=== PATIENT | male | born 1970 | race Hispanic/Latino ===

== ENCOUNTER 2019-01-04 16:38 | Observation (INO) | payer BC, OTHER ==
[~2019-01-04] VITALS: Ht 182.9 cm; Wt 106.6 kg
--- OUTSIDE RECORDS SUMMARY | 2019-01-04 16:41 | XMS REPORT ---
Author Author Admin, [place] Organization [facility] Address [address] [place] [phone] Phone Allergies, Adverse Reactions, Alerts Allergy Name Reaction Description Start Date Severity Status Provider No Known Allergies Khadra Sears CMA Conditions or Problems Problem Name Problem Code Onset Date Status Entry Date Provider Comment Standard Description Annotate Annual exam V70.0 Active Gil Sears MD Routine general medical examination at a health care facility Impacted cerumen, bilateral 380.4 Active Gil Sears MD Impacted cerumen Nipple lesion 611.79 Active Gil Sears MD Other signs and symptoms in breast Acquired multiple renal cysts 593.2 Active Norma C Witt TELEVISION MAINTENANCE WORKER Cyst of kidney, acquired Fatty liver 571.8 Active Norma C Witt TELEVISION MAINTENANCE WORKER Other chronic nonalcoholic liver disease Hyperglycemia, borderline 790.29 Active Norma C Witt TELEVISION MAINTENANCE WORKER Other abnormal glucose Pulmonary mass 786.6 Active Norma C Witt TELEVISION MAINTENANCE WORKER Swelling, mass, or lump in chest 1.5 cm bobbi low position in the right lower lung field Std screening V74.5 Active Norma C Witt TELEVISION MAINTENANCE WORKER Screening examination for venereal disease Hyperlipidemia, mixed, severe 272.2 Active Norma C Witt TELEVISION MAINTENANCE WORKER Mixed hyperlipidemia Vitamin D deficiency 268.9 Active Norma C Witt TELEVISION MAINTENANCE WORKER Unspecified vitamin D deficiency Abdominal pain 789.00 Active Norma C Witt TELEVISION MAINTENANCE WORKER Abdominal pain, unspecified site Elevated blood pressure reading without diagnosis of hypertension 796.2 Active Norma Reyesa TELEVISION MAINTENANCE WORKER Elevated blood pressure reading without diagnosis of hypertension Family history of biliary cancer V16.0 Active Norma Reyesa TELEVISION MAINTENANCE WORKER Family history of malignant neoplasm of gastrointestinal tract Nausea and vomiting 787.01 Active Norma Reyesa TELEVISION MAINTENANCE WORKER Nausea with vomiting Screening for thyroid disorder V77.0 Active Norma C Witt TELEVISION MAINTENANCE WORKER Screening for thyroid disorders Screening for vitamin D deficiency V77.99 Active Norma C Witt TELEVISION MAINTENANCE WORKER Screening for other and unspecified endocrine, nutritional, metabolic, and immunity disorders Hypertriglyceridemia, severe 272.4 Inactive Norma Reyesa TELEVISION MAINTENANCE WORKER Other and unspecified hyperlipidemia Hypertriglyceridemia, severe ICD-272.4 Inactive Norma Reyesa TELEVISION MAINTENANCE WORKER Medication List Medication Instructions Start Date Stop Date Generic Name NDC Status Provider Patient Instruction FENOFIBRATE 54 MG ORAL TABLET Take 1 tab By Mouth QAM FENOFIBRATE 52499030282 Active Norma Reyesa TELEVISION MAINTENANCE WORKER Active ONDANSETRON HCL 4 MG ORAL TABLET TAke 1 tab By Mouth Q6 hrs As Needed nausea/vomiting ONDANSETRON HCL 61178472662 Active Norma Reyesa TELEVISION MAINTENANCE WORKER Active PROMETHAZINE HCL 12.5 MG ORAL TABLET 1 by mouth every 6 hours as needed for nausea or emesis PROMETHAZINE HCL 11849775889 Active Norma Reyesa TELEVISION MAINTENANCE WORKER Active SIMVASTATIN 40 MG ORAL TABLET 1 by mouth every night SIMVASTATIN 26353825940 Active Norma Reyesa TELEVISION MAINTENANCE WORKER Active COLACE 100 MG ORAL CAPSULE 1 by mouth twice a day x2 wks then 1 caps daily DOCUSATE SODIUM 64376955532 Active Norma Reyesa TELEVISION MAINTENANCE WORKER Active OMEPRAZOLE 20 MG ORAL CAPSULE DELAYED RELEASE 1 by mouth every day OMEPRAZOLE 38751842390 Active Norma Reyesa TELEVISION MAINTENANCE WORKER Active PROMETHAZINE HCL 12.5 MG ORAL TABLET 1 by mouth every 8 hours as needed for nausea or emesis PROMETHAZINE HCL 03734362513 Active Norma Reyesa TELEVISION MAINTENANCE WORKER Active CARAFATE 1 GM ORAL TABLET 1 by mouth 3 times a day 30 minutes before meals CARAFATE 1 GM ORAL TABLET 450102 SUCRALFATE Inactive VITAMIN D (ERGOCALCIFEROL) 09361 UNIT ORAL CAPSULE One capsule by mouth once per week for 12 weeks VITAMIN D (ERGOCALCIFEROL) 71782 UNIT ORAL CAPSULE 3592606 ERGOCALCIFEROL Inactive CARAFATE 1 GM ORAL TABLET 1 by mouth 3 times a day 30 minutes before meals SUCRALFATE [id number] No Longer Active Normarudi Witt TELEVISION MAINTENANCE WORKER Active VITAMIN D (ERGOCALCIFEROL) 31673 UNIT ORAL CAPSULE One capsule by mouth once per week for 12 weeks ERGOCALCIFEROL [id number] No Longer Active Norma Sibley Eduar TELEVISION MAINTENANCE WORKER Active Vital Signs Date Name Value Unit Range Description blood pressure, diastolic 74 mm[Hg] BP alvares blood pressure, systolic 113 mm[Hg] BP sys height E&M 72 [in_us] Bdy height pulse rate E&M 64 /min Heart rate respiratory rate E&M 18 /min Resp rate temperature E&M 98.3 [degF] Body temperature weight E&M 238 [lb_av] Weight Measured blood pressure, diastolic 77 mm[Hg] BP alvares blood pressure, systolic 117 mm[Hg] BP sys height E&M 72 [in_us] Bdy height pulse rate E&M 72 /min Heart rate respiratory rate E&M 18 /min Resp rate temperature E&M 98.7 [degF] Body temperature weight E&M 242 [lb_av] Weight Measured blood pressure, diastolic 78 mm[Hg] BP alvares blood pressure, systolic 115 mm[Hg] BP sys height E&M 72 [in_us] Bdy height pulse rate E&M 63 /min Heart rate respiratory rate E&M 12 /min Resp rate temperature E&M 97.9 [degF] Body temperature weight E&M 235.38 [lb_av] Weight Measured blood pressure, diastolic 77 mm[Hg] BP alvares blood pressure, systolic 133 mm[Hg] BP sys height E&M 72 [in_us] Bdy height pulse rate E&M 59 /min Heart rate temperature E&M 99 [degF] Body temperature weight E&M 267 [lb_av] Weight Measured Diagnostic Results Date Name Value Unit Range Description Lab Report: CBC With Differential/Platelet, Comp. Metabolic Panel (14), ... - Chemistry thyroid stimulating hormone, serum 1.720 u[iU]/mL 0.450-4.500 very low density lipoproteins 33 mg/dL 5-40 Lab Report: LIPID PANEL, STANDARD, HDL CHOLESTEROL, TRIGLYCERIDES, LDL-C ... - Chemistry cholesterol, non-HDL, total 199 MG/DL (CALC) mg/dL <130 hepatitis B surface antigen NON-REACTIVE NON-REACTIVE Lab Report: CBC With Differential/Platelet, Comp. Metabolic Panel (14), ... - Chemistry chloride, serum 102 mmol/L 96-106 urea nitrogen, blood 13 mg/dL 6-24 Lab Report: LIPID PANEL, HDL CHOLESTEROL, TRIGLYCERIDES, LDL-CHOLESTEROL ... - Hematology Absolute Eosinophil count 259 {Cells}/uL 15-500 Lab Report: CBC With Differential/Platelet, Comp. Metabolic Panel (14), ... - Urinalysis leukocyte esterase, urine, by dipstick Negative Negative Lab Report: CBC With Differential/Platelet, Comp. Metabolic Panel (14), ... - Hematology mean corpuscular hemoglobin concentration, RBC 32.7 G/DL % 31.5-35.7 erythrocyte (RBC) count 5.14 X10E6/UL 10*6/mm3 4.14-5.80 Lab Report: LIPID PANEL, STANDARD, HDL CHOLESTEROL, TRIGLYCERIDES, LDL-C ... - Chemistry cholesterol/HDL ratio, serum, percent 6.5 (calc) <5.0 Lab Report: LIPID PANEL, STANDARD, HDL CHOLESTEROL, TRIGLYCERIDES, LDL-C ... - Serology hepatitis C antibody, serum NON-REACTIVE NON-REACTIVE Lab Report: CBC With Differential/Platelet, Comp. Metabolic Panel (14), ... - Urinalysis urine color Yellow Yellow Lab Report: CBC With Differential/Platelet, Comp. Metabolic Panel (14), ... - Chemistry Absolute Neutrophils 4.0 X10E3/UL 10*3/uL 1.4-7.0 Lab Report: CBC With Differential/Platelet, Comp. Metabolic Panel (14), ... - Urinalysis bilirubin, urine Negative Negative Lab Report: LIPID PANEL, HDL CHOLESTEROL, TRIGLYCERIDES, LDL-CHOLESTEROL ... - Hematology mean platelet volume 10.4 fL 7.5-12.5 Lab Report: CBC With Differential/Platelet, Comp. Metabolic Panel (14), ... - Chemistry LDL cholesterol, serum 139 mg/dL 0-99 urea nitrogen/creatinine ratio, serum 14 9-20 Lab Report: CBC With Differential/Platelet, Comp. Metabolic Panel (14), ... - Hematology mean corpuscular volume, RBC 88 fL 79-97 Lab Report: CBC With Differential/Platelet, Comp. Metabolic Panel (14), ... - Chemistry HDL cholesterol, serum 54 mg/dL >39 Lab Report: CBC With Differential/Platelet, Comp. Metabolic Panel (14), ... - Hematology monocytes as percent of blood leukocytes 7 % Not Estab. Lab Report: CBC With Differential/Platelet, Comp. Metabolic Panel (14), ... - Chemistry creatinine, serum 0.91 mg/dL 0.76-1.27 albumin/globulin ratio, serum 2.0 1.2-2.2 Lab Report: LIPID PANEL, HDL CHOLESTEROL, TRIGLYCERIDES, LDL-CHOLESTEROL ... - Hematology Absolute Monocyte count 585 {Cells}/uL 200-950 Lab Report: CBC With Differential/Platelet, Comp. Metabolic Panel (14), ... - Chemistry cholesterol, serum 226 mg/dL 883-692 6760/06/13 bilirubin, serum, total 0.6 mg/dL 0.0-1.2 Lab Report: CBC With Differential/Platelet, Comp. Metabolic Panel (14), ... - Hematology Eosinophil Absolute Count 0.3 X10E3/UL 10*3/uL 0.0-0.4 Lab Report: CBC With Differential/Platelet, Comp. Metabolic Panel (14), ... - Urinalysis appearance, urine Cloudy Clear Lab Report: CBC With Differential/Platelet, Comp. Metabolic Panel (14), ... - Chemistry aspartate aminotransferase (SGOT), serum 15 U/L 0-40 Lab Report: CBC With Differential/Platelet, Comp. Metabolic Panel (14), ... - Hematology red blood cell distribution width 14.7 % 12.3-15.4 Lab Report: CBC With Differential/Platelet, Comp. Metabolic Panel (14), ... - Urinalysis urinalysis, microscopic examination [facility] Lab Report: LIPID PANEL, STANDARD, HDL CHOLESTEROL, TRIGLYCERIDES, LDL-C ... - Chemistry globulins, serum, total 2.6 G/DL (CALC) g/dL 1.9-3.7 Lab Report: CBC With Differential/Platelet, Comp. Metabolic Panel (14), ... - Hematology leukocyte count, blood 7.2 X10E3/UL 10*3/mm3 3.4-10.8 Lab Report: CBC With Differential/Platelet, Comp. Metabolic Panel (14), ... - Urinalysis pH, urine, semiquantitative 8.0 5.0-7.5 Lab Report: CBC With Differential/Platelet, Comp. Metabolic Panel (14), ... - Chemistry potassium, serum 5.2 mmol/L 3.5-5.2 immature granulocytes, percentage of total cells, blood 0 % Not Estab. albumin, serum 4.5 g/dL 3.5-5.5 Lab Report: CBC With Differential/Platelet, Comp. Metabolic Panel (14), ... - Hematology lymphocyte count, blood, automated 2.4 X10E3/UL 10*3/mm3 0.7-3.1 hematocrit, blood 45.0 % 37.5-51.0 Lab Report: CBC With Differential/Platelet, Comp. Metabolic Panel (14), ... - Chemistry sodium, serum 141 mmol/L 134-144 Lab Report: LIPID PANEL, HDL CHOLESTEROL, TRIGLYCERIDES, LDL-CHOLESTEROL ... - Chemistry TSH (thyroid stimulating hormone) with reflex FT4 1.35 m[iU]/L 0.40-4.50 Lab Report: CBC With Differential/Platelet, Comp. Metabolic Panel (14), ... - Hematology neutrophils as percent of blood leukocytes 55 % Not Estab. basophils as percent of blood leukocytes 1 % Not Estab. Lab Report: CBC With Differential/Platelet, Comp. Metabolic Panel (14), ... - Chemistry specific gravity, body fluid 1.021 1.005-1.030 Lab Report: CBC With Differential/Platelet, Comp. Metabolic Panel (14), ... - Urinalysis protein, urine, semiquantitative (dipstick) Negative Negative/Trace Lab Report: CBC With Differential/Platelet, Comp. Metabolic Panel (14), ... - Chemistry carbon dioxide, venous blood 25 mmol/L 20-29 Lab Report: LIPID PANEL, HDL CHOLESTEROL, TRIGLYCERIDES, LDL-CHOLESTEROL ... - Chemistry Absolute Neutrophil count 3848 {Cells}/uL [phone] Lab Report: CBC With Differential/Platelet, Comp. Metabolic Panel (14), ... - Chemistry nitrate, urine Negative Negative triglyceride, serum, fasting 163 mg/dL 0-149 calcium, serum 9.5 mg/dL 8.7-10.2 alanine aminotransferase (SGPT), serum 16 U/L 0-44 Lab Report: CBC With Differential/Platelet, Comp. Metabolic Panel (14), ... - Hematology mean corpuscular hemoglobin, RBC 28.6 pg 26.6-33.0 Lab Report: LIPID PANEL, HDL CHOLESTEROL, TRIGLYCERIDES, LDL-CHOLESTEROL ... - Chemistry lipase, serum 19 U/L [iU]/L 7-60 Lab Report: CBC With Differential/Platelet, Comp. Metabolic Panel (14), ... - Chemistry protein, total, serum 6.8 g/dL 6.0-8.5 alkaline phosphatase, serum 78 U/L 39-117 Lab Report: CBC With Differential/Platelet, Comp. Metabolic Panel (14), ... - Hematology hemoglobin, blood 14.7 g/dL 13.0-17.7 lymphocytes as percent of blood leukocytes 33 % Not Estab. Lab Report: CBC With Differential/Platelet, Comp. Metabolic Panel (14), ... - Chemistry hemoglobin A1C, blood, as % of total hemoglobin 5.5 % 4.8-5.6 Lab Report: CBC With Differential/Platelet, Comp. Metabolic Panel (14), ... - Urinalysis glucose, urine, semiquantitative Negative Negative Lab Report: LIPID PANEL, HDL CHOLESTEROL, TRIGLYCERIDES, LDL-CHOLESTEROL ... - Hematology eosinophils as percent of blood leukocytes 3.5 % Lab Report: CBC With Differential/Platelet, Comp. Metabolic Panel (14), ... - Genetics/fertility eGFR if 115 mL/min/1.73m2 >59 Lab Report: CBC With Differential/Platelet, Comp. Metabolic Panel (14), ... - Hematology basophil count, absolute 0.0 x10E3/uL 0.0-0.2 Lab Report: LIPID PANEL, STANDARD, HDL CHOLESTEROL, TRIGLYCERIDES, LDL-C ... - Lab Hepatitis C Antibody, Signal to Cut-Off 0.02 <1.00 Lab Report: CBC With Differential/Platelet, Comp. Metabolic Panel (14), ... - Chemistry globulin, serum 2.3 1.5-4.5 Estimated Glomerular Filtration Rate (calc) 99 mL/min/1.73m2 >59 Lab Report: LIPID PANEL, HDL CHOLESTEROL, TRIGLYCERIDES, LDL-CHOLESTEROL ... - Chemistry lymphocytes, absolute 2657 CELLS/UL 10*3/uL 850-3900 Lab Report: CBC With Differential/Platelet, Comp. Metabolic Panel (14), ... - Basic Occult Blood, urine Negative Negative Lab Report: LIPID PANEL, HDL CHOLESTEROL, TRIGLYCERIDES, LDL-CHOLESTEROL ... - Chemistry vitamin D 25-hydroxy, serum 19 ng/mL 30-100 Lab Report: LIPID PANEL, HDL CHOLESTEROL, TRIGLYCERIDES, LDL-CHOLESTEROL ... - Serology carcinoembryonic antigen 0.7 ng/mL See Note: Lab Report: CBC With Differential/Platelet, Comp. Metabolic Panel (14), ... - Hematology eosinophils as percent of blood leukocytes 4 % Not Estab. Lab Report: CBC With Differential/Platelet, Comp. Metabolic Panel (14), ... - Chemistry blood glucose, random 99 mg/dL 65-99 Lab Report: CBC With Differential/Platelet, Comp. Metabolic Panel (14), ... - Urinalysis urobilinogen, urine, semiquantitative (dipstick) 0.2 0.2-1.0 Lab Report: LIPID PANEL, HDL CHOLESTEROL, TRIGLYCERIDES, LDL-CHOLESTEROL ... - Chemistry amylase, serum 27 U/L 21-101 Lab Report: CBC With Differential/Platelet, Comp. Metabolic Panel (14), ... - Hematology monocyte count, blood, automated 0.5 X10E3/UL 10*3/uL 0.1-0.9 platelet count 245 X10E3/UL 10*3/mm3 150-450 Lab Report: CBC With Differential/Platelet, Comp. Metabolic Panel (14), ... - Urinalysis ketones, urine, by test strip Negative Negative Encounters Date Encounter Provider Code Facility 12:07:28 CDT Est Patient Exp Problem - 04815 Gil Sears MD CPT-76716 [facility] 09:41:20 CDT Est Patient Detailed - 65310 Norma Witt NP CPT-89211 [facility] 13:56:34 CDT New Patient Comprehensive - 91233 Normarudi Witt TELEVISION MAINTENANCE WORKER CPT-51505 [facility] Procedures Code Procedure Name Date Entry Date Standard Description CPT-60984 Est Patient Well Exam (40 - 64 Yrs) - 39630 10:39:49 CDT CPT-21173 Venipuncture 10:38:49 CDT CPT-01987 New Patient Well Exam (40 - 64 Yrs) - 86050 11:54:47 CDT
--- OUTSIDE RECORDS SUMMARY | 2019-01-04 16:41 | XMS REPORT ---
Author Author Admin, [place] Organization [facility] Address [address] [place] [phone] Phone Allergies, Adverse Reactions, Alerts Allergy Name [...] renal cysts 593.2 Active Norma C Witt COPING MACHINE OPERATOR Cyst of kidney, acquired Fatty liver 571.8 Active Norma C Witt COPING MACHINE OPERATOR Other chronic nonalcoholic liver disease Hyperglycemia, borderline 790.29 Active Norma C Witt COPING MACHINE OPERATOR Other abnormal glucose Pulmonary mass 786.6 Active Norma C Witt COPING MACHINE OPERATOR Swelling, mass, or lump in chest 1.5 cm bobbi low position in the right lower lung field Std screening V74.5 Active Norma C Witt COPING MACHINE OPERATOR Screening examination for venereal disease Hyperlipidemia, mixed, severe 272.2 Active Norma C Witt COPING MACHINE OPERATOR Mixed hyperlipidemia Vitamin D deficiency 268.9 Active Norma C Witt COPING MACHINE OPERATOR Unspecified vitamin D deficiency Abdominal pain 789.00 Active Norma C Witt COPING MACHINE OPERATOR Abdominal pain, unspecified site Elevated blood pressure reading without diagnosis of hypertension 796.2 Active Norma Reyesa COPING MACHINE OPERATOR Elevated blood pressure reading without diagnosis of hypertension Family history of biliary cancer V16.0 Active Norma Reyesa COPING MACHINE OPERATOR Family history of malignant neoplasm of gastrointestinal tract Nausea and vomiting 787.01 Active Norma Reyesa COPING MACHINE OPERATOR Nausea with vomiting Screening for thyroid disorder V77.0 Active Norma C Witt COPING MACHINE OPERATOR Screening for thyroid disorders Screening for vitamin D deficiency V77.99 Active Norma C Witt COPING MACHINE OPERATOR Screening for other and unspecified endocrine, nutritional, metabolic, and immunity disorders Hypertriglyceridemia, severe 272.4 Inactive Norma Reyesa COPING MACHINE OPERATOR Other and unspecified hyperlipidemia Hypertriglyceridemia, severe ICD-272.4 Inactive Norma Reyesa COPING MACHINE OPERATOR Medication List Medication Instructions Start Date Stop Date Generic Name NDC Status Provider Patient Instruction FENOFIBRATE 54 MG ORAL TABLET Take 1 tab By Mouth QAM FENOFIBRATE 98874589260 Active Norma Reyesa COPING MACHINE OPERATOR Active ONDANSETRON HCL 4 MG ORAL TABLET TAke 1 tab By Mouth Q6 hrs As Needed nausea/vomiting ONDANSETRON HCL 45251659894 Active Norma Reyesa COPING MACHINE OPERATOR Active PROMETHAZINE HCL 12.5 MG ORAL TABLET 1 by mouth every 6 hours as needed for nausea or emesis PROMETHAZINE HCL 18193814245 Active Norma Reyesa COPING MACHINE OPERATOR Active SIMVASTATIN 40 MG ORAL TABLET 1 by mouth every night SIMVASTATIN 36128739181 Active Norma Reyesa COPING MACHINE OPERATOR Active COLACE 100 MG ORAL CAPSULE 1 by mouth twice a day x2 wks then 1 caps daily DOCUSATE SODIUM 44376513901 Active Norma Reyesa COPING MACHINE OPERATOR Active OMEPRAZOLE 20 MG ORAL CAPSULE DELAYED RELEASE 1 by mouth every day OMEPRAZOLE 56587457634 Active Norma Reyesa COPING MACHINE OPERATOR Active PROMETHAZINE HCL 12.5 MG ORAL TABLET 1 by mouth every 8 hours as needed for nausea or emesis PROMETHAZINE HCL 39282779909 Active Norma Reyesa COPING MACHINE OPERATOR Active CARAFATE 1 GM ORAL TABLET 1 by mouth 3 times a day 30 minutes before meals CARAFATE 1 GM ORAL TABLET 001902 SUCRALFATE Inactive VITAMIN D (ERGOCALCIFEROL) 93195 UNIT ORAL CAPSULE One capsule by mouth once per week for 12 weeks VITAMIN D (ERGOCALCIFEROL) 32052 UNIT ORAL CAPSULE 6655993 ERGOCALCIFEROL Inactive CARAFATE 1 GM ORAL TABLET 1 by mouth 3 times a day 30 minutes before meals SUCRALFATE 93015455686 No Longer Active Normarudi Witt COPING MACHINE OPERATOR Active VITAMIN D (ERGOCALCIFEROL) 30855 UNIT ORAL CAPSULE One capsule by mouth once per week for 12 weeks ERGOCALCIFEROL 66770821217 No Longer Active Norma Sibley Eduar COPING MACHINE OPERATOR Active Vital Signs Date Name Value Unit [...] temperature weight E&M 267 [lb_av] Weight Measured blood pressure, diastolic 95 mm[Hg] BP alvares blood pressure, systolic 143 mm[Hg] BP sys height E&M 72 [in_us] Bdy height pulse rate E&M 68 /min Heart rate temperature E&M 98 [degF] Body temperature weight E&M 266.44 [lb_av] Weight Measured Diagnostic Results Date Name Value Unit Range Description Lab Report: LIPID PANEL, STANDARD, HDL CHOLESTEROL, TRIGLYCERIDES, LDL-C ... - Chemistry cholesterol, non-HDL, total 199 MG/DL (CALC) mg/dL <130 hepatitis B surface antigen NON-REACTIVE NON-REACTIVE chloride, serum 102 mmol/L 98-110 urea nitrogen, blood 13 mg/dL 7-25 Lab Report: LIPID PANEL, HDL CHOLESTEROL, TRIGLYCERIDES, LDL-CHOLESTEROL ... - Hematology Absolute Eosinophil count 259 {Cells}/uL 15-500 mean corpuscular hemoglobin concentration, RBC 32.5 G/DL % 32.0-36.0 Lab Report: LIPID PANEL, STANDARD, HDL CHOLESTEROL, TRIGLYCERIDES, LDL-C ... - Chemistry cholesterol/HDL ratio, serum, percent 6.5 (calc) <5.0 Lab Report: LIPID PANEL, HDL CHOLESTEROL, TRIGLYCERIDES, LDL-CHOLESTEROL ... - Hematology erythrocyte (RBC) count 5.48 MILLION/UL 10*6/mm3 4.20-5.80 Lab Report: LIPID PANEL, STANDARD, HDL CHOLESTEROL, TRIGLYCERIDES, LDL-C ... - Serology hepatitis C antibody, serum NON-REACTIVE NON-REACTIVE Lab Report: LIPID PANEL, HDL CHOLESTEROL, TRIGLYCERIDES, LDL-CHOLESTEROL ... - Hematology mean platelet volume 10.4 fL 7.5-12.5 Lab Report: LIPID PANEL, STANDARD, HDL CHOLESTEROL, TRIGLYCERIDES, LDL-C ... - Chemistry LDL cholesterol, serum LDL cholesterol not calculated. Triglyceride le... mg/dL (calc) mg/dL urea nitrogen/creatinine ratio, serum NOT APPLICABLE (calc) 6-22 Lab Report: LIPID PANEL, HDL CHOLESTEROL, TRIGLYCERIDES, LDL-CHOLESTEROL ... - Hematology mean corpuscular volume, RBC 84.9 fL 80.0-100.0 Lab Report: LIPID PANEL, STANDARD, HDL CHOLESTEROL, TRIGLYCERIDES, LDL-C ... - Chemistry HDL cholesterol, serum 36 mg/dL >40 Lab Report: LIPID PANEL, HDL CHOLESTEROL, TRIGLYCERIDES, LDL-CHOLESTEROL ... - Hematology monocytes as percent of blood leukocytes 7.9 % Lab Report: LIPID PANEL, STANDARD, HDL CHOLESTEROL, TRIGLYCERIDES, LDL-C ... - Chemistry creatinine, serum 0.91 mg/dL 0.60-1.35 albumin/globulin ratio, serum 1.7 (calc) 1.0-2.5 Lab Report: LIPID PANEL, HDL CHOLESTEROL, TRIGLYCERIDES, LDL-CHOLESTEROL ... - Hematology Absolute Monocyte count 585 {Cells}/uL 200-950 Lab Report: LIPID PANEL, STANDARD, HDL CHOLESTEROL, TRIGLYCERIDES, LDL-C ... - Chemistry cholesterol, serum 235 mg/dL <200 bilirubin, serum, total 0.4 mg/dL 0.2-1.2 aspartate aminotransferase (SGOT), serum 17 U/L 10-40 Lab Report: LIPID PANEL, HDL CHOLESTEROL, TRIGLYCERIDES, LDL-CHOLESTEROL ... - Hematology red blood cell distribution width 13.8 % 11.0-15.0 Lab Report: LIPID PANEL, STANDARD, HDL CHOLESTEROL, TRIGLYCERIDES, LDL-C ... - Chemistry globulins, serum, total 2.6 G/DL (CALC) g/dL 1.9-3.7 Lab Report: LIPID PANEL, HDL CHOLESTEROL, TRIGLYCERIDES, LDL-CHOLESTEROL ... - Hematology leukocyte count, blood 7.4 THOUSAND/UL 10*3/mm3 3.8-10.8 Lab Report: LIPID PANEL, STANDARD, HDL CHOLESTEROL, TRIGLYCERIDES, LDL-C ... - Chemistry potassium, serum 4.3 mmol/L 3.5-5.3 albumin, serum 4.4 g/dL 3.6-5.1 Lab Report: LIPID PANEL, HDL CHOLESTEROL, TRIGLYCERIDES, LDL-CHOLESTEROL ... - Hematology hematocrit, blood 46.5 % 38.5-50.0 Lab Report: LIPID PANEL, STANDARD, HDL CHOLESTEROL, TRIGLYCERIDES, LDL-C ... - Chemistry sodium, serum 140 mmol/L 135-146 Lab Report: LIPID PANEL, HDL CHOLESTEROL, TRIGLYCERIDES, LDL-CHOLESTEROL ... - Chemistry TSH (thyroid stimulating hormone) with reflex FT4 1.35 m[iU]/L 0.40-4.50 Lab Report: LIPID PANEL, HDL CHOLESTEROL, TRIGLYCERIDES, LDL-CHOLESTEROL ... - Hematology neutrophils as percent of blood leukocytes 52 % basophils as percent of blood leukocytes 0.7 % Lab Report: LIPID PANEL, STANDARD, HDL CHOLESTEROL, TRIGLYCERIDES, LDL-C ... - Chemistry carbon dioxide, venous blood 25 mmol/L 20-32 Lab Report: LIPID PANEL, HDL CHOLESTEROL, TRIGLYCERIDES, LDL-CHOLESTEROL ... - Chemistry Absolute Neutrophil count 3848 {Cells}/uL 5701-6748 Lab Report: LIPID PANEL, STANDARD, HDL CHOLESTEROL, TRIGLYCERIDES, LDL-C ... - Chemistry triglyceride, serum, fasting 452 mg/dL <150 calcium, serum 9.4 mg/dL 8.6-10.3 alanine aminotransferase (SGPT), serum 27 U/L 9-46 Lab Report: LIPID PANEL, HDL CHOLESTEROL, TRIGLYCERIDES, LDL-CHOLESTEROL ... - Hematology mean corpuscular hemoglobin, RBC 27.6 pg 27.0-33.0 Lab Report: LIPID PANEL, HDL CHOLESTEROL, TRIGLYCERIDES, LDL-CHOLESTEROL ... - Chemistry lipase, serum 19 U/L [iU]/L 7-60 Lab Report: LIPID PANEL, STANDARD, HDL CHOLESTEROL, TRIGLYCERIDES, LDL-C ... - Chemistry protein, total, serum 7.0 g/dL 6.1-8.1 alkaline phosphatase, serum 88 U/L 40-115 Lab Report: LIPID PANEL, HDL CHOLESTEROL, TRIGLYCERIDES, LDL-CHOLESTEROL ... - Hematology hemoglobin, blood 15.1 g/dL 13.2-17.1 lymphocytes as percent of blood leukocytes 35.9 % Lab Report: LIPID PANEL, STANDARD, HDL CHOLESTEROL, TRIGLYCERIDES, LDL-C ... - Chemistry hemoglobin A1C, blood, as % of total hemoglobin 5.5 % OF TOTAL HGB % <5.7 Lab Report: LIPID PANEL, HDL CHOLESTEROL, TRIGLYCERIDES, LDL-CHOLESTEROL ... - Hematology eosinophils as percent of blood leukocytes 3.5 % Lab Report: LIPID PANEL, STANDARD, HDL CHOLESTEROL, TRIGLYCERIDES, LDL-C ... - Genetics/fertility eGFR if 116 mL/min/1.73m2 > OR=60 Lab Report: LIPID PANEL, HDL CHOLESTEROL, TRIGLYCERIDES, LDL-CHOLESTEROL ... - Hematology basophil count, absolute 52 cells/uL 0-200 Lab Report: LIPID PANEL, STANDARD, HDL CHOLESTEROL, TRIGLYCERIDES, LDL-C ... - Lab Hepatitis C Antibody, Signal to Cut-Off 0.02 <1.00 Lab Report: LIPID PANEL, STANDARD, HDL CHOLESTEROL, TRIGLYCERIDES, LDL-C ... - Chemistry Estimated Glomerular Filtration Rate (calc) 100 mL/min/1.73m2 > OR=60 Lab Report: LIPID PANEL, HDL CHOLESTEROL, TRIGLYCERIDES, LDL-CHOLESTEROL ... - Chemistry lymphocytes, absolute 2657 CELLS/UL 10*3/uL 850-3900 vitamin D 25-hydroxy, serum 19 ng/mL 30-100 Lab Report: LIPID PANEL, HDL CHOLESTEROL, TRIGLYCERIDES, LDL-CHOLESTEROL ... - Serology carcinoembryonic antigen 0.7 ng/mL See Note: Lab Report: LIPID PANEL, STANDARD, HDL CHOLESTEROL, TRIGLYCERIDES, LDL-C ... - Chemistry blood glucose, random 92 mg/dL 65-99 Lab Report: LIPID PANEL, HDL CHOLESTEROL, TRIGLYCERIDES, LDL-CHOLESTEROL ... - Chemistry amylase, serum 27 U/L 21-101 Lab Report: LIPID PANEL, HDL CHOLESTEROL, TRIGLYCERIDES, LDL-CHOLESTEROL ... - Hematology platelet count 273 THOUSAND/UL 10*3/mm3 140-400 Encounters Date Encounter Provider Code Facility 12:07:28 CDT Est Patient Exp Problem - 53835 Gil Sears MD CPT-50402 [facility] 09:41:20 CDT Est Patient Detailed - 22616 Norma iWtt NP CPT-57374 [facility] 13:56:34 CDT New Patient Comprehensive - 60725 oNrma Witt COPING MACHINE OPERATOR CPT-73018 [facility] Procedures Code Procedure Name Date Entry Date Standard Description CPT-25313 Est Patient Well Exam (40 - 64 Yrs) - 15509 10:39:49 CDT CPT-33844 Venipuncture 10:38:49 CDT CPT-77036 New Patient Well Exam (40 - 64 Yrs) - 95022 11:54:47 CDT
[2019-01-04] MEDS ORDERED: ASPIRIN 81 MG CHEW TAB PO ONE ×2 (17:15→18:45)
[2019-01-04 17:57] LABS: BILIRUBIN,URINE NEGATIVE (NEGATIVE); CLARITY,URINE SL CLOUDY (CLEAR); COLOR,URINE YELLOW (YELLOW); KETONES,URINE NEGATIVE (NEGATIVE); LEUKOCYTE ESTERASE ,URINE NEGATIVE (NEGATIVE); NITRITE,URINE NEGATIVE (NEGATIVE); PROTEIN,URINE DIPSTICK NEGATIVE (NEGATIVE); URINE UROBILINOGEN 0.2 mg/dL (0.2 - 1)
[2019-01-04 18:11] LABS: BASOPHILS # (AUTO) 0.1 (0.0-0.1); BASOPHILS % 0.7 % (0.0-1.0); EOSINOPHILS # (AUTO) 0.5 (0.0-0.4); EOSINOPHILS % 5.3 % (0.0-6.0); HEMATOCRIT 45.5 % (38.2-49.6); HEMOGLOBIN 15.5 g/dL (14.0-18.0); LYMPHOCYTES # (AUTO) 3.9 (1.0-3.2); LYMPHOCYTES % 39.9 % (18.0-39.1); MEAN CORPUSCULAR HEMOGLOBIN 27.9 pg (28-32); MEAN CORPUSCULAR HGB CONC 34.1 g/dL (31-35); MEAN CORPUSCULAR VOLUME 81.8 fL (81-99); MONOCYTES # (AUTO) 0.8 (0.2-0.8); NEUTROPHILS # (AUTO) 4.4 (2.1-6.9); NEUTROPHILS % 45.9 % (38.7-80.0); PLATELET COUNT 246 x10e3/uL (140-360); RED BLOOD COUNT 5.56 x10e6/uL (4.3-5.7); RED CELL DISTRIBUTION WIDTH 13.5 % (11.7-14.4)
[2019-01-04 18:14] LABS: EPITHELIAL CELLS,URINE RARE /LPF
--- NOTE | 2019-01-04 18:17 | Diagnostic Imaging Report ---
EXAMINATION: CHEST SINGLE (PORTABLE) INDICATION: Shortness of breath ^ERMD ORDER ^[id number] ^1750 ^Y COMPARISON: None FINDINGS: TUBES and LINES: None. LUNGS: Lungs are well inflated. Lungs are clear. There is no evidence of pneumonia or pulmonary edema. PLEURA: No pleural effusion or pneumothorax. HEART AND MEDIASTINUM: The cardiomediastinal silhouette is unremarkable. BONES AND SOFT TISSUES: No acute osseous lesion. Soft tissues are unremarkable. UPPER ABDOMEN: No free air under the diaphragm. IMPRESSION: No acute thoracic abnormality. Signed by: Dr. Reece Archibald M.D. on 01/04/2019 6:14 PM
[2019-01-04 18:18] LABS: INR 0.87; PARTIAL THROMBOPLASTIN TIME 26.1 seconds (23.8-35.5); PROTHROMBIN TIME 12.3 seconds (11.9-14.5)
[2019-01-04 18:27] LABS: ALANINE AMINOTRANSFERASE 19 IU/L (0-55); ALBUMIN 4.4 g/dL (3.5-5.0); ALBUMIN/GLOBULIN RATIO 1.3 (0.8-2.0); ALKALINE PHOSPHATASE 80 IU/L (40-150); ANION GAP 14.7 mmol/L (8-16); BLOOD UREA NITROGEN 15 mg/dL (7-26); BUN/CREATININE RATIO 16 (6-25); CARBON DIOXIDE 23 mmol/L (22-29); CHLORIDE 102 mmol/L (98-107); CREATINE KINASE 73 IU/L (30-200); CREATININE, SERUM 0.93 mg/dL (0.72-1.25); EST GLOMERULAR FILTRATION RATE > 60 ML/MIN (60-); GLUCOSE 89 mg/dL (74-118); POTASSIUM 3.7 mmol/L (3.5-5.1); SODIUM 136 mmol/L (136-145)
[2019-01-04] MEDS ORDERED: METOPROLOL TARTRATE 25 MG TAB PO SCH (18:45)
[2019-01-04] MEDS ORDERED: NITROGLYCERIN 0.4 MG SUBL SL PRN (18:45)
[2019-01-04] MEDS ORDERED: SODIUM CHLORIDE FLUSH 10 ML SYR INJ PRN (18:45)
[2019-01-04] MEDS ORDERED: FAMOTIDINE 20 MG TAB PO SCH (18:45)
--- OUTSIDE RECORDS SUMMARY | 2019-01-04 18:55 | XMS REPORT ---
Author Author [facility] Address Unknown Phone Unavailable Care Team Providers Care Retread Operator Name Role Phone Syed KNIGHT Unavailable Unavailable Problems This patient has no known problems. Allergies, Adverse Reactions, Alerts This patient has no known allergies or adverse reactions. Medications This patient has no known medications. Results Test Description Test Time Test Comments Text Results Atomic Results Result Comments CHEST SINGLE (PORTABLE) 2019-01-04 18:13:00 [facility] [address] [place] [address] Patient Name: JESSEE NARAYANAN MR #: [id number] : 1970 Age/Sex: 48/M Req #: [id number] Adm Physician: Ordered by: NANCY MARTINO SHIPPING WEIGHER Report #: [id number] Location: ER Room/Bed: Procedure: [id number] DX/CHEST SINGLE (PORTABLE) Exam Date: 01/04/19 Exam Time: 1750 REPORT STATUS: Signed EXAMINATION: CHEST SINGLE (PORTABLE) IND ICATION: Shortness of breath ERMD ORDER [id number] 1750 Y COMPARISON: None FINDINGS: TUBES and LINES: None. LUNGS: Lungs are well inflated. Lungs are clear. There is no evidence of pneumonia or pulmonary edema. PLEURA: No pleural effusion or pneumothorax. HEART AND MEDIASTINUM: The cardiomediastinal silhouette is unremarkable. BONES AND SOFT TISSUES: No acute osseous lesion. Soft tissues are unremarkable. UPPER ABDOMEN: No free air under the diaphragm. IMPRESSION: No acute thoracic abnormality. Signed by: Dr. Reece Archibald M.D. on 01/04/2019 6:14 PM Dictated By: REECE ARCHIBALD MD, MD 13 Transcribed By: PASHA on 01/04/191813 COPY TO: NANCY MARTINO NP
--- NOTE | 2019-01-04 20:21 | Consultation ---
DATE OF CONSULTATION: 01/04/2019 Cardiology Consultation CONSULTING PHYSICIAN: Steve Landaverde M.D., Interventional Cardiology. REASON FOR CONSULTATION: Chest pain. HISTORY OF PRESENT ILLNESS: Mr. Chandler is a 48-year-old man with no reported past medical history other than morbid obesity and family history significant for early onset coronary artery disease, who presents with complaints of chest discomfort described as pressure-like, sudden onset, lasting seconds at a time, radiating to left side of face including the eye area with residual mild pressure to left facial aspect. A resolution of chest pain since symptoms woke him up and have not recurred. He has no other current complaints. He denies any prior syncope, palpitations, lightheadedness, or shortness of breath. ALLERGIES: NO KNOWN DRUG ALLERGIES. PAST MEDICAL HISTORY: Denies. HOME MEDICATIONS: Denies. SOCIAL HISTORY: No active smoking, alcohol, or drugs. FAMILY HISTORY: Significant for early onset of coronary artery disease. PHYSICAL EXAMINATION: VITAL SIGNS: Temperature 98.9, heart rate 65, respiratory rate 18, blood pressure 153/75, and O2 saturation 98%. GENERAL: In no acute distress, alert. NECK: No JVD. No carotid bruits. CHEST: Clear to auscultation bilaterally. CARDIOVASCULAR: Regular rate and rhythm. Normal S1, S2. No S3, no S4. ABDOMEN: Soft, nontender. Bowel sounds positive. EXTREMITIES: No cyanosis, clubbing, or edema. Warm distal lower extremities. SKIN: Dry and intact. Mucosa moist. NEUROLOGIC: Normal speech. Grossly nonfocal. CARDIOVASCULAR MEDICATIONS: Reviewed: 1. Simvastatin 20 mg at bedtime. 2. Metoprolol tartrate 75 mg every 12 hours. 3. Aspirin 81 mg daily. LABORATORY STUDIES: Reviewed, white blood cells 9.6, hemoglobin 15.5, and platelets 246. INR 0.8, PTT 26.1, and PT 12.3. D-dimer 0.24. Sodium 136, potassium 3.7, chloride 102, bicarbonate 23, BUN 15, creatinine 0.93, glucose 89, calcium 10, total bilirubin 0.4, AST 19, ALT 19, alkaline phosphatase 80. CK 73, CK-MB 0.6, troponin I 0.016. BNP less than 10. Total protein 7.7, albumin 4.4. ASSESSMENT: A 48-year-old man presents with: 1. Atypical chest pain. 2. Family history significant for coronary artery disease. 3. Left-sided neck discomfort. 4. Left leg pain/edema. RECOMMENDATIONS: 1. Obtain echocardiogram. 2. Monitor on telemetry. 3. Serial cardiac biomarkers. 4. Left lower extremity venous ultrasound. 5. Carotid ultrasound to rule out carotid dissection to decide onset of symptoms and location of symptoms. Thank you Dr. Arteaga for the opportunity to participate in the care of Mr. Chandler. MD MORIAH Bearden/MODL /[id number]
[2019-01-04] MEDS ORDERED: SIMVASTATIN 20 MG TAB PO SCH (21:00)
--- NOTE | 2019-01-05 02:16 | NUR ---
PATIENT OFFERED WAFFLE FOR BED. PATIENT DENIED AT THIS TIME
[2019-01-05 02:32] LABS: BASOPHILS # (AUTO) 0.1 (0.0-0.1); BASOPHILS % 0.6 % (0.0-1.0); EOSINOPHILS # (AUTO) 0.5 (0.0-0.4); EOSINOPHILS % 5.7 % (0.0-6.0); HEMATOCRIT 42.9 % (38.2-49.6); LYMPHOCYTES # (AUTO) 3.3 (1.0-3.2); LYMPHOCYTES % 37.5 % (18.0-39.1); MEAN CORPUSCULAR HEMOGLOBIN 27.3 pg (28-32); MEAN CORPUSCULAR HGB CONC 32.6 g/dL (31-35); MEAN CORPUSCULAR VOLUME 83.8 fL (81-99); MONOCYTES # (AUTO) 0.8 (0.2-0.8); MONOCYTES % 9.4 % (4.4-11.3); NEUTROPHILS # (AUTO) 4.1 (2.1-6.9); NEUTROPHILS % 46.6 % (38.7-80.0); PLATELET COUNT 220 x10e3/uL (140-360); RED BLOOD COUNT 5.12 x10e6/uL (4.3-5.7); RED CELL DISTRIBUTION WIDTH 13.6 % (11.7-14.4)
--- NOTE | 2019-01-05 02:48 | NUR ---
REPORT GIVEN TO ANGUS SHAH
[2019-01-05 02:51] LABS: CREATINE KINASE MB 0.6 ng/mL (0-5.0)
[2019-01-05 03:00] LABS: ALANINE AMINOTRANSFERASE 17 IU/L (0-55); ALBUMIN/GLOBULIN RATIO 1.1 (0.8-2.0); ALKALINE PHOSPHATASE 68 IU/L (40-150); ANION GAP 12.6 mmol/L (8-16); BLOOD UREA NITROGEN 16 mg/dL (7-26); BUN/CREATININE RATIO 18 (6-25); CALCIUM 9.4 mg/dL (8.4-10.2); CARBON DIOXIDE 25 mmol/L (22-29); CHLORIDE 105 mmol/L (98-107); CREATININE, SERUM 0.91 mg/dL (0.72-1.25); EST GLOMERULAR FILTRATION RATE > 60 ML/MIN (60-); GLUCOSE 100 mg/dL (74-118); POTASSIUM 3.6 mmol/L (3.5-5.1); SODIUM 139 mmol/L (136-145)
[2019-01-05 03:09] LABS: ALBUMIN 3.5 g/dL (3.5-5.0)
[2019-01-05 03:37] LABS: CHOL/HDL RATIO 5.7 (3.9-4.7); CHOLESTEROL 223 MD/DL (0-199); HDL CHOLESTEROL 39 MG/DL (40-60); LDL CHOLESTEROL 112 MG/DL (60-130); TRIGLYCERIDES 362 MG/DL (0-149)
[2019-01-05 05:49] LABS: CREATINE KINASE MB 0.5 ng/mL (0-5.0)
[2019-01-05] MEDS ORDERED: ASPIRIN 81 MG ENTERIC COATED PO SCH (09:00)
[2019-01-05] MEDS ORDERED: FAMOTIDINE 20 MG TAB PO SCH (09:00)
[2019-01-05] MEDS ORDERED: METOPROLOL TARTRATE 25 MG TAB PO SCH (09:00)
[2019-01-05 13:49] LABS: CREATINE KINASE MB 0.5 ng/mL (0-5.0)
[2019-01-05 17:42] VITALS: BP 143/94
[2019-01-05] MEDS ORDERED: NITROSTAT0.4 MG SL (18:23)
[2019-01-05] MEDS ORDERED: LOPRESSOR25 MG PO (18:23)
[2019-01-05] MEDS ORDERED: SIMVASTATIN20 MG PO (18:23)
[2019-01-05] MEDS ORDERED: ASPIRIN EC81 MG PO (18:23)
--- NOTE | 2019-01-05 20:11 | Progress Note ---
DATE: 01/05/2019 Cardiology Progress Note SUBJECTIVE: Denies any chest pain, neck pain, facial discomfort, or leg discomfort. OBJECTIVE: VITAL SIGNS: Temperature 98.5, heart rate 63, respiratory rate 16, and blood pressure 111/63. On telemetry, sinus rhythm with rare PVCs. No arrhythmias observed. GENERAL: In no acute distress. Alert, active, oriented x3. NECK: No JVD or carotid bruits. CHEST: Clear to auscultation bilaterally. CARDIOVASCULAR: Regular rate and rhythm. Normal S1, S2. No S3 or S4. Systolic ejection murmur /6. ABDOMEN: Soft, nontender. Bowel sounds positive. EXTREMITIES: No cyanosis, clubbing, or edema. CARDIOVASCULAR MEDICATIONS: Reviewed. Simvastatin 20 mg at bedtime, metoprolol tartrate 25 mg every 12 hours, and aspirin 81 mg daily. STUDIES: Reviewed. Serial troponins negative x3. Sodium 139, potassium 3.6, chloride 105, bicarbonate 25, BUN 16, creatinine 0.9, glucose 100. White blood cells 8.7, hemoglobin 14, and platelets 220. INR 0.8. AST 13, ALT 17, alkaline phosphatase 68. Total bilirubin 0.5, triglycerides 362, total cholesterol 223, LDL 112, HDL 39, TSH 1.78. Hemoglobin A1c is 4.1. Carotid ultrasound without any evidence of dissection for hemodynamically significant extracranial carotid stenosis, and antegrade vertebrals bilaterally. Echocardiogram with mild global impairment in left ventricular systolic function. Left ventricular ejection fraction of 45% to 50%. Lower extremity venous ultrasound negative for deep venous thrombosis. ASSESSMENT AND PLAN: A 48-year-old man presents with atypical chest discomfort, associated with left neck pain and left leg pain. Symptoms were very short-lived in nature and atypical, noncardiac in description. He has ruled out for an acute myocardial infarction. However, remarkable findings include mild global and prominent left ventricular systolic function, LVH, rare PVCs in telemetry and hypertension, which is diabetic control as well as mixed dyslipidemia for which statin therapy is advised and initiated. I have advised the patient further workup from a cardiac standpoint including consideration of telemetry monitoring as outpatient and follow up for further coronary risk stratification while in-house. The patient prefers to be discharged home and followup as outpatient for further coronary assessment as scheduling as well as for further evaluation of arrhythmogenic burden. Office contact information has been provided. The patient instructed to follow with Cardiology in 1 to 3 weeks. Continue beta-eri, aspirin, and statin in the meantime. MD MORIAH Bearden/AMBERL /[id number]
--- NOTE | 2019-01-06 07:38 | Discharge Summary ---
HISTORY: Mr. Chandler is a 48-year-old male presenting with chief complaint of pressure-like sudden onset chest pain radiating to the left side of the face including the area with a residual mild pressure to the left face, which started on January 03 at 8 p.m. waking him up. He had associated nausea and lightheadedness. Signs and symptoms have resolved. The patient was seen in the emergency department, room #3 alone. PAST MEDICAL HISTORY: Obesity. PAST SURGICAL HISTORY: Bilateral knee surgery with a meniscus, right shoulder surgery, and umbilical hernia repair. FAMILY HISTORY: His father has an extensive cardiac history including, but not limited to coronary artery disease, myocardial infarction, coronary artery bypass graft x3 vessels, heart disease, mitral valve replaced, pacemaker, and left ventricular assistive device and stroke. His mother had bile duct cancer that spread to her liver. SOCIAL HISTORY: Denies tobacco, alcohol, or illicit drugs. ALLERGIES: NO KNOWN ALLERGIES. ADMITTING DIAGNOSES: 1. Acute systolic congestive heart failure with cardiomyopathy. 2. Chest pain atypical with strong cardiac family history in the 1st degree relative, namely his father. 3. Nausea with dizziness. 4. Obesity with a BMI of 31. 5. Left-sided neck discomfort and left leg pain. DISCHARGE DIAGNOSES: 1. Acute systolic congestive heart failure with cardiomyopathy. 2. Chest pain atypical with strong cardiac family history in the 1st degree relative, namely his father. 3. Nausea with dizziness. 4. Obesity with a BMI of 31. 5. Left-sided neck discomfort and left leg pain. CONSULTS: Include Dr. Landaverde. D-dimer was 0.24. UA negative. Triglycerides 362. Cholesterol 223, LDL 112, and HDL 39. TSH 1.786. Hemoglobin A1c 4.1%. Cardiac enzymes were negative with troponin I of 0.003 and 0.011. Chest x-ray was negative. Carotid Doppler ultrasound was negative for carotid stenosis bilaterally. Bilateral lower extremity venous Doppler ultrasound was negative for DVT. A 12-lead showed normal sinus rhythm with a heart rate 66, sinus rhythm and incomplete right bundle branch block. Echocardiogram showed ejection fraction of 45% to 55%. The patient prefers to be discharged today. Per Dr. Maher, the patient does need telemetry via Holter monitor and a stress test on an outpatient basis as well as to begin using beta eri at home post discharge. ADDITIONAL LABS: Potassium 3.7, BUN 15, creatinine 0.93, GFR greater than 60. B-type natriuretic peptide was less than 10. Today, BUN 16, creatinine 0.91, and GFR greater than 60. WBCs 8.75 today. Hemoglobin 14, hematocrit 42.9. Urinalysis negative for UTI. I explained to the patient that he definitely needs to follow up with the crown and bridge dental lab technician within one week. He is to follow up with his PCP, Dr. Cj Rivas in 1-2 weeks. Activity level as tolerated. Continue cardiac diet. Dictated by Saul Glass NP MD MALACHI Morley/KENAN /[id number]
== END 2019-01-05 18:58 | disposition left against medical advice (07) ==
LOC: ER 16:38 → ERHOLD 18:33 → IMCU 01-05 16:47
PROVIDERS: ADMIT Internal Medicine; ATTEND Internal Medicine
DX: I11.0 Hypertensive heart disease with heart failure (principal); I50.21 Acute systolic (congestive) heart failure; M54.2 Cervicalgia; Z68.31 Body mass index [BMI] 31.0-31.9, adult; Z82.49 Family history of ischemic heart disease and other diseases of the circulatory system; M79.605 Pain in left leg; I42.9 Cardiomyopathy, unspecified; R11.0 Nausea; E78.2 Mixed hyperlipidemia; I49.3 Ventricular premature depolarization; E66.01 Morbid (severe) obesity due to excess calories; E11.9 Type 2 diabetes mellitus without complications
CPT/HCPCS: 36415; 71045; 80053; 80061; 81001; 82550; 82553; 83036; 83880; 84443; 84484; 85025; 85379; 85610; 85730; 93005; 93306; 93880; 93970; 99285; G0378

== ENCOUNTER → 2020-01-10 | Outpatient (CLI) | payer OTHER ==
[~2020-01-10] MED LIST: ASPIRIN EC81 MG PO; IOPAMIDOL 370 MG/ML 200 ML INFUS..BTL INJ ONE; LOPRESSOR25 MG PO; NITROSTAT0.4 MG SL; SIMVASTATIN20 MG PO; SODIUM CHLORIDE 0.9% 250ML 250 ML ONE
--- NOTE | 2020-01-11 10:23 | Diagnostic Imaging Report ---
EXAM: CT Abdomen and Pelvis WITH intravenous contrast - Hematuria protocol INDICATION: Asymptomatic microscopic hematuria COMPARISON: None. TECHNIQUE: Abdomen and pelvis were scanned utilizing a multidetector helical scanner from the lung base to the pubic symphysis before and after administration of IV contrast. Coronal and sagittal reformations were obtained. Hematuria protocol was used. Scan was performed prior to contrast administration and during delayed excretory phase. 3-D reconstructions were produced and analyzed on a dedicated workstation. IV CONTRAST: 100 mL of Isovue 370 ORAL CONTRAST: Water COMPLICATIONS: None RADIATION DOSE: Total DLP: 1861 mGy*cm Dose modulation, iterative reconstruction, and/or weight based adjustment of the mA/kV was utilized to reduce the radiation dose to as low as reasonably achievable. FINDINGS: LOWER THORAX: Mild dependent right middle lobe and lingular subsegmental atelectasis. No focal consolidation. HEPATOBILIARY: No focal liver lesion. No biliary ductal dilation. Unremarkable gallbladder. SPLEEN: No splenomegaly. PANCREAS: No focal masses or ductal dilatation. ADRENALS: No adrenal nodules. KIDNEYS/URETERS: No hydronephrosis, stones, or solid mass lesions. Bilateral simple renal cysts measure up to 1.5 cm on the right and 2.2 cm on the left. Delayed excretory phase images demonstrate opacification of nearly the entire course of both ureters with no evidence of filling defect to suggest urothelial mass lesion. PELVIC ORGANS/BLADDER: No calculi or mass. PERITONEUM / RETROPERITONEUM: No free air or fluid. LYMPH NODES: No lymphadenopathy. VESSELS: Unremarkable. GI TRACT: No abnormal bowel thickening. No bowel obstruction. Normal appendix. BONES AND SOFT TISSUES: No acute osseous injury. No suspicious lytic or blastic lesions. IMPRESSION: No hydronephrosis, renal calculi, solid renal mass lesion, or urothelial lesion. Signed by: Magali Elliott MD on 01/11/2020 10:19 AM
== END ==
LOC: CT 17:27
PROVIDERS: ATTEND Urology
DX: R31.21 Asymptomatic microscopic hematuria (principal)
CPT/HCPCS: 74178; J7050; Q9967

== ENCOUNTER → 2020-05-25 | Day surgery (SDC) | payer OTHER ==
[~2020-05-25] MED LIST changes: +FENTANYL CITRATE/PF 100MCG/2 ML INJ ONE; +GLUCAGON FOR INJ 1 MG VIAL ONE; +GLYCOPYRROLATE INJ 0.2 MG/ML VIAL ONE; -IOPAMIDOL 370 MG/ML 200 ML INFUS..BTL INJ ONE; +LIDOCAINE HCL 2% LOCAL INJ 5 ML SDV VIAL INJ ONE; +METOCLOPRAMIDE HCL 10 MG/2ML VIAL ONE; +MIDAZOLAM HCL 2 MG/2 ML VIAL ONE; +PANTOPRAZOLE 40 MG 10ML VIAL ONE; +PROPOFOL IV EMULSION 10 MG/ML 20 ML VIAL ONE; -SODIUM CHLORIDE 0.9% 250ML 250 ML ONE
[2020-05-25 18:45] VITALS: BP 132/87
== END | disposition home or self-care (01) ==
LOC: OR 13:01
PROVIDERS: ATTEND Internal Medicine Gastroenterology
DX: K22.10 Ulcer of esophagus without bleeding (principal); D12.2 Benign neoplasm of ascending colon; D12.4 Benign neoplasm of descending colon; D12.5 Benign neoplasm of sigmoid colon; K29.80 Duodenitis without bleeding; K29.70 Gastritis, unspecified, without bleeding; K64.8 Other hemorrhoids; K62.5 Hemorrhage of anus and rectum; R03.0 Elevated blood-pressure reading, without diagnosis of hypertension; E66.9 Obesity, unspecified; I45.10 Unspecified right bundle-branch block; Z01.810 Encounter for preprocedural cardiovascular examination; Z01.812 Encounter for preprocedural laboratory examination; Z20.822 Contact with and (suspected) exposure to COVID-19; Z68.38 Body mass index [BMI] 38.0-38.9, adult; Z87.442 Personal history of urinary calculi; Z80.0 Family history of malignant neoplasm of digestive organs
CPT/HCPCS: 43239; 43450; 45384; 45385; 93005; C9113; J1610; J2001; J2250; J2704; J2765; J3010; U0002

== ENCOUNTER → 2020-06-02 | Outpatient (CLI) | payer OTHER ==
[~2020-06-02] MED LIST changes: -FENTANYL CITRATE/PF 100MCG/2 ML INJ ONE; -GLUCAGON FOR INJ 1 MG VIAL ONE; -GLYCOPYRROLATE INJ 0.2 MG/ML VIAL ONE; +IOPAMIDOL 370 MG/ML 200 ML INFUS..BTL INJ ONE; -LIDOCAINE HCL 2% LOCAL INJ 5 ML SDV VIAL INJ ONE; -METOCLOPRAMIDE HCL 10 MG/2ML VIAL ONE; -MIDAZOLAM HCL 2 MG/2 ML VIAL ONE; -PANTOPRAZOLE 40 MG 10ML VIAL ONE; -PROPOFOL IV EMULSION 10 MG/ML 20 ML VIAL ONE; +SODIUM CHLORIDE 0.9% 50ML 50 ML ONE
== END ==
LOC: CT 15:02
PROVIDERS: ATTEND Internal Medicine Gastroenterology
DX: R10.9 Unspecified abdominal pain (principal)
CPT/HCPCS: 74177; Q9967